=== PATIENT | female | born 1980 | race Caucasian/White ===

== ENCOUNTER 2019-10-31 20:21 | Emergency (ER) | payer OTHER ==
--- NOTE | 2019-10-31 21:18 | ER ---
Nurse's Notes [facility] Name: Teena Ortega Age: 39 yrs Sex: Female : 1980 Arrival Date: 10/31/2019 Time: 20:23 Bed Waiting Private MD: Diagnosis: ED Course: 10/30 20:23 Patient arrived in ED. cl3 20:51 Patient's name was called from ER lobby. No response. dm5 Administered Medications: No medications were administered Outcome: 21:17 Patient left the ED. dm5 Signatures: Cornelia Lind, RN RN Agnes Shabazz cl3
== END 2019-10-31 21:17 | disposition left against medical advice (07) ==
LOC: ER 20:21
DX: Z02.89 Encounter for other administrative examinations (principal); Z53.21 Procedure and treatment not carried out due to patient leaving prior to being seen by health care provider